=== PATIENT | female | born 2005 | race Caucasian/White ===

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

== ENCOUNTER 2024-05-09 09:09 | Emergency (ER) | payer OTHER, SELFPAY ==
[2024-05-09 09:11] VITALS: BP 128/78; PULSE 114; RESP 15; TEMP 36.8; O2SAT 98; BMI 17.5
--- NOTE | 2024-05-09 09:23 | PC.NURSE ---
dr turner at bedside
--- NOTE | 2024-05-09 09:25 | CT_ITS ---
FINAL REPORT CLINICAL HISTORY: RLQ abdominal pain COMPARISON: 05/11/2021 FINDINGS: CT OF THE ABDOMEN AND PELVIS WITH CONTRAST Axial CT images of the abdomen and pelvis were obtained after the administration of oral and iv contrast. Coronal and sagittal reformatted images were also obtained and reviewed.This study was performed with techniques to keep radiation doses as low as reasonably achievable (ALARA). Individualized dose reduction techniques using automated exposure control or adjustment of mA and/or kV according to the patient's size were employed. Abdomen: The lung bases are clear. The heart is normal in size. The liver has an unremarkable appearance, without evidence of mass or biliary ductal dilatation. The spleen is unremarkable. No adrenal mass is present. The pancreas has an unremarkable appearance. There are multiple bilateral nonobstructing renal stones present, measuring up to 3 mm in size. The number of renal stones has increased since the prior CT of 2020. The aorta is normal in caliber. There is no free fluid or adenopathy. No mass or abnormal fluid collection is seen. Pelvis: The appendix is not well-visualized, however no periappendiceal inflammatory change is present. The urinary bladder is unremarkable. No inflammatory process is seen. There are multiple right lower quadrant mesenteric nodes identified, nonspecific but likely reactive versus mesenteric adenitis. There are prominent dilated periuterine veins, more prominent on the left than on the right, worrisome for pelvic congestion syndrome. These are new since the prior CT of 2020. There is no evidence of bowel obstruction. IMPRESSION: Prominent dilated periuterine veins, more prominent on the left than on the right, worrisome for pelvic congestion syndrome. Multiple right lower quadrant mesenteric nodes, reactive versus mesenteric adenitis. Appendix is not well-seen, however there is no periappendiceal inflammatory change. Multiple bilateral nonobstructing renal stones, more numerous than seen on the prior CT. These measure up to 3 mm in size. No evidence of hydronephrosis is seen. Reviewed, Interpreted and Dictated by Júnior Diop III, MD Transcribed by Josi Rose Authenticated and [facility]
--- NOTE | 2024-05-09 09:29 | HMH.EDGENADL ---
Discharge Plan Disposition Patient Disposition: Home, Self-Care Condition: Good Prescriptions Prescriptions: New ondansetron 4 mg tablet,disintegrating 4 mg PO Q6H PRN (Reason: nausea and vomiting) 5 Days Qty: 30 0RF No Action omeprazole 20 mg capsule,delayed release(DR/EC) 20 mg PO BID Qty: 60 2RF hydroxyzine HCl 25 mg tablet 25 mg PO Q6H PRN (Reason: nausea and vomiting) Qty: 20 0RF medroxyprogesterone [Depo-Provera] 150 mg/mL syringe 150 mg IM [id number] Qty: 1 3RF Referrals Follow up/Referrals: Elliott Davenport MD [Primary Care Provider] - 3 days Activity Restrictions/Add. Instructions Additional Instructions/Restrictions: You can take the Zofran every 6 hours as needed for nausea/vomiting. You will need to increase the fluids that you drink while you are having diarrhea. This can be water or drinks such as Gatorade zero, Powerade zero, Pedialyte. Do not take medications to slow or stop the diarrhea such as Imodium. At this time, your labs and CT scan do not support appendicitis. Continue symptomatic management at home by taking Tylenol and ibuprofen (alternate every 3 hours), applying heat packs to the lower abdomen, taking the antiemetics such as Zofran. Please follow up with your primary care provider in 2-3 days. Please return to ED if your symptoms worsen, change in location, change in severity, new symptoms develop or if you become concerned for your health. Clinical Impressions Clinical Impression: Gastroenteritis, Female pelvic congestion syndrome Instructions Patient Instructions: DI for Acute Abdominal Pain, Gastroenteritis Diet Print Language Print Language: Greenlandic Discharge ED Provider: Renae Cason General Adult HPI General Chief complaint: Abdominal Pain Stated complaint: Severe abdominal pain, V/D Time Seen by Provider: 05/09/24 09:13 Mode of Arrival: Ambulatory Source of Information: Patient Limitations: No Limitations Description of Symptoms (Recalled from ER Triage Doc. by RN): PT REPORTS RIGHT SIDED ABDOMINAL PAIN THAT STARTED ON SUNDAY, PT'S DAUGHTER HAS HAD STOMACH BUG PT REPORTS DIARRHEA AND EMESIS WELL. DENIES FEVER History of Present Illness HPI narrative: Estrella Dutton is a 18 y/o female presenting with abdominal pain. Patient states her abdominal pain started on Sunday night and was associated with frequent diarrhea, nausea, vomiting. Patient's daughter was diagnosed with a stomach bug and she was initially concerned that that is what she had. Patient has not taken [id number] medications at home. She states that she had taken Tylenol one time but it was medication. Patient was seen by her primary care provider yesterday and discharged with supportive care medications. Patient was also given return precautions that if her abdominal pain continued and/or got worse, she should come to the ER for evaluation. Patient is a and has had no prior abdominal surgeries. Patient states she has a history of ovarian cyst rupture and is currently on the Depo-Provera for control. Patient denies fevers, chills, chest pain, shortness of breath. Patient uses a vape, but denies heavy alcohol use or alternative drug use. Related Data Previous Rx's ?Medication ?Instructions ?Recorded medroxyprogesterone 150 mg/mL 150 mg IM [id number] #1 mL 03/07/24 intramuscular syringe (Depo-Provera) hydroxyzine HCl 25 mg tablet 25 mg PO Q6H PRN nausea and 05/08/24 vomiting #20 tabs omeprazole 20 mg capsule,delayed 20 mg PO BID #60 caps 05/08/24 release ondansetron 4 mg disintegrating 4 mg PO Q6H PRN nausea and 05/09/24 tablet vomiting 5 days #30 tabs Allergies Allergy/AdvReac Type Severity Reaction Status Date / Time No Known Allergies Allergy Verified 05/08/24 13:18 [facility] Disclaimer: The information contained in this section may have been updated after the patient was seen, as this information can be updated by other users. Medical History No significant past medical history Surgical History Hx of tonsillectomy Social History Smoking Status: Current every day smoker tobacco type: e-cigarettes alcohol intake: never substance use type: denies use current occupational status: employed Travel in the last 8 weeks: None household members: significant other and children housing: house number of children: 0 do you feel safe at home: Yes victim of physical abuse: No victim of emotional abuse: No victim of sexual abuse: No would you like helpful sources: No Other Medical History Have you received the Flu Vaccine for this season: No Have you received the Pneumonia Vaccine: No ROS Obtained: Yes All systems reviewed & no additional complaints except as documented Physical Exam General General appearance: alert and in no apparent distress Respiratory Respiratory exam: Present normal lung sounds bilaterally; Absent respiratory distress Cardiovascular Cardiovascular exam: Present normal rhythm and tachycardia; Absent JVD Abdominal Exam Abdominal exam: Present soft, tenderness and normal bowel sounds; Absent distention, guarding or rebound Abdominal tenderness: Present RLQ (most prominent in RLQ) and diffuse Extremities Exam Extremities exam: Present normal inspection and full ROM Neurological Exam Neurological exam: Present alert and oriented X3 Skin Skin exam: Present warm, dry, intact and normal color Medical Decision Making Medical Records Screening: Per USPSTF and CDC recommendations, given the prevalence of disease in our region, it is our hospital?s policy to screen for HIV and viral Hepatitis for all patients aged 18 and over and those with ongoing risk factors. Justyn Inquiry Pt receiving controlled substance: No Vital Signs: 05/09/24 09:11 05/09/24 09:46 05/09/24 10:00 Temperature 98.3 F Temperature Source Oral Pulse Rate 97 H 99 H Pulse Rate [Radial] 114 H Respiratory Rate 15 Blood Pressure 110/63 116/66 Blood Pressure [Right Arm] 128/78 Blood Pressure Mean 79 73 Blood Pressure Mean [Right Arm] 94 Blood Pressure Source [Right Arm] Automatic Cuff Blood Pressure Position [Right Arm] Sitting 02 Sat by Pulse Oximetry 98 100 100 Oxygen Delivery Method Room Air 05/09/24 10:30 05/09/24 11:00 Temperature Temperature Source Pulse Rate 93 H 86 Pulse Rate [Radial] Respiratory Rate Blood Pressure 99/61 L 106/67 L Blood Pressure [Right Arm] Blood Pressure Mean 80 Blood Pressure Mean [Right Arm] Blood Pressure Source [Right Arm] Blood Pressure Position [Right Arm] 02 Sat by Pulse Oximetry 100 99 Oxygen Delivery Method Room Air Room Air Lab Data Lab Results 05/09/24 09:19: Urine Color Yellow, Urine Appearance Clear, Urine pH 6.5, Ur Specific [place] 1.025, Urine Protein Negative, Urine Glucose (UA) Negative, Urine Ketones Trace, Urine Blood Trace-i, Urine Nitrate Negative, Urine Bilirubin 1+ A, Urine Urobilinogen 0.2, Ur Leukocyte Esterase Negative, Urine RBC Occasional, Urine WBC Occasional, Ur Squamous Epith Cells 3-5, Urine Bacteria Trace 05/09/24 09:20: WBC 11.7, RBC 5.08, Hgb 15.9, Hct 45.0, MCV 88.4, MCH 31.2, MCHC 35.3, RDW 12.8, Plt Count 188, MPV 8.9, Neut % (Auto) 80.5 H, Lymph % (Auto) 9.4 L, [place] % (Auto) 7.2, Eos % (Auto) 2.2, Baso % (Auto) 0.7, Neut # (Auto) 9.4 H, Lymph # (Auto) 1.1, [place] # (Auto) 0.8, Eos # (Auto) 0.3, Baso # (Auto) 0.1, Sodium 140, Potassium 3.8, Chloride 107, Carbon Dioxide 22, Anion Gap 14.8, BUN 8, Creatinine 0.70, Estimated Creat Clear 80, Estimated GFR 107, Est GFR ( Amer) 129, Glucose 100, Calcium 9.8, Total Bilirubin 0.6, AST 24, ALT 22, Alkaline Phosphatase 67, Total Protein 7.9, Albumin 4.8, Globulin 3.1, Albumin/Globulin Ratio 1.5, Serum HCG, Qual Negative 05/09/24 09:20 05/09/24 09:20 Orders (Tests/Meds): ED MEDICATIONS Generic Name Dose Route Start Last Admin Trade Name Isrrael PRN Reason Stop Dose Admin Sodium Chloride 10 ml 05/09/24 09:52 05/09/24 09:53 Sodium Chloride 0.9% 10ml Syr (Rad Only) IV 06/08/24 09:51 10 ml NEEDED PRN Administration Maintain IV Site Discontinued Medications Generic Name Dose Route Start Last Admin Trade Name Frevishnu PRN Reason Stop Dose Admin Iopamidol 75 ml 05/09/24 09:52 05/09/24 09:53 Iopamidol-370 (76%);100ml Bottle IV 05/09/24 09:53 75 ml ONCE ONE Administration Morphine Sulfate 2 mg 05/09/24 09:25 05/09/24 09:41 Morphine 2mg/Ml Syringe IV 05/09/24 09:26 2 mg ONCE ONE Administration Ondansetron HCl 4 mg 05/09/24 09:25 05/09/24 09:40 Ondansetron 4mg/2ml Vial IV 05/09/24 09:26 4 mg ONCE ONE Administration ORDERS Category Date Time Status CT abdomen pelvis w con Stat Cat Scan 05/09/24 09:25 Completed Complete Blood Count Auto Diff Stat Lab 05/09/24 09:20 Completed Comprehensive Metabolic Panel Stat Lab 05/09/24 09:20 Completed HCG Qualitative, Serum Stat Lab 05/09/24 09:20 Completed HIV (1&2) Antibody Rapid Stat Lab 05/09/24 09:20 Received Hep C Ab with Reflex to RNA Stat Lab 05/09/24 09:20 Received Urinalysis and Microscopic Stat Lab 05/09/24 09:19 Completed Medical Decision Narrative: In summary, Estrella Dutton is a 18 y/o female presenting with abdominal pain. Differential diagnosis includes but is not limited to, viral gastroenteritis, appendicitis, ovarian torsion, constipation, IBS, IBD, acute cystitis, among others. On initial evaluation, patient is tachycardic but in no acute distress. Patient able to ambulate without significant tenderness. Exam notable for diffuse abdominal tenderness without rebound or guarding which was most significant in the patient's right lower quadrant. Patient has had her symptoms for the past 3 days and her pain has continued to worsen. To this point, patient has not had any labs or imaging performed. Based on the history provided by the patient, her most likely diagnosis continues to be a gastroenteritis given the exposure at home as well as vomiting and diarrhea associated with the abdominal pain that she describes as cramping. Will perform abdominal laboratory evaluation (CBC w/, CMP, lipase, hCG, UA) as well as imaging to rule out more significant diagnoses such as appendicitis and ovarian torsion by evaluating the size of the ovaries on the CT scan initially. Laboratory evaluation without leukocytosis, anemia, thrombocytopenia. Beta-hCG negative. Urinalysis without evidence of acute cystitis. CT abdomen/pelvis with IV contrast personally reviewed by me and the appendix was not well-visualized. No evidence of bowel obstruction, bladder wall thickening, enlarged ovaries. Final radiologic report reads no inflammatory process in the likely region of the appendix, right lower quadrant mesenteric nodes are identified and possibly reactive. Patient also has prominent periuterine vasculature suggesting pelvic congestion syndrome. Upon reevaluation, patient's findings were discussed with her. At this time, although the appendix was not visualized, patient's laboratory evaluation and surrounding features on her CT scan do not support the diagnosis of appendicitis at this time. Given patient's primary contact with her child at home having a gastroenteritis infection, patient most likely suffering from something similar. Patient tolerated a p.o. challenge without difficulty. Patient given a prescription for Zofran in addition to the medications provided by her primary care provider. Patient also given guidance with regards to at home pain and symptomatic control. Patient advised to follow-up with her [facility] [employer] [employer], on a nonemergent basis, for the pelvic congestion syndrome. Renae Cason MD PGY-3, Emergency Medicine Critical Care Critical Care Time Critical Care Time: No
[2024-05-09 09:35] LABS: Albumin Level 4.8 g/dl (3.5-5.0); Basophils # 0.1 K/mm3 (0-0.2); Basophils % 0.7 % (0.1-2.0); Chloride 107 mmol/L (98-107); Eosinophils # 0.3 K/mm3 (0.0-0.4); Eosinophils % 2.2 % (0.1-12.0); Hemoglobin 15.9 g/dL (12.2-16.2); Lymphocytes # 1.1 K/mm3 (0.7-4.5); Lymphocytes % 9.4 % (10-50); Mean Corpuscular HGB Conc 35.3 g/dL (31.8-35.4); Mean Corpuscular Hemoglobin 31.2 pg (27.0-31.2); Mean Corpuscular Volume 88.4 fl (81-99); Mean Platelet Volume 8.9 fl (7.4-10.4); Monocytes # 0.8 K/mm3 (0.1-1.0); Monocytes % 7.2 % (1.7-9.3); Neutrophils # 9.4 K/mm3 (1.8-7.8); Neutrophils % 80.5 % (37.0-80.0); Platelet Count 188 K/mm3 (142-424); Red Blood Count 5.08 M/mm3 (4.20-5.40); Red Cell Distribution Width 12.8 % (11.5-17.5); Sodium 140 mmol/L (136-145); White Blood Count 11.7 K/mm3 (4.5-13.0)
[2024-05-09 09:36] LABS: Potassium 3.8 mmoL/L (3.5-5.1)
[2024-05-09 09:38] LABS: Alanine Aminotransferase 22 U/L (12-78); Albumin/Globulin Ratio 1.5 (1.1-1.8); Alkaline Phosphatase 67 U/L (38-126); Anion Gap 14.8 mEq/L (5-15); Aspartate Amino Transferase 24 U/L (14-36); Bilirubin,Total 0.6 mg/dl (0.2-1.3); Blood Urea Nitrogen 8 mg/dl (7-17); Carbon Dioxide 22 mmol/L (22.0-30.0); Creatinine Clearance Estimated 80 mL/min (50-200); Estimated Glomerular Filt Rate 107 ml/min (>60); GFR (African American) 129 ML/MIN (>60); Globulin 3.1 g/dL (1.3-3.2); Total Protein,Serum 7.9 g/dl (6.3-8.2)
[2024-05-09 09:39] LABS: Calcium 9.8 mg/dl (8.4-10.2); Glucose 100 mg/dl (74-100)
[2024-05-09] MEDS: ONDANSETRON 4MG/2ML VIAL 4 MG IV (09:40)
[2024-05-09 09:41] LABS: HCG Qualitative, Serum Negative (Negative)
[2024-05-09] MEDS: MORPHINE 2MG/ML SYRINGE 2 MG IV (09:41)
[2024-05-09 09:43] LABS: Microscopic, Urine URINE MICROSCOPIC (MICROSCOPIC)
[2024-05-09 09:46] VITALS: BP 110/63; PULSE 97; O2SAT 100
--- NOTE | 2024-05-09 09:49 | PC.NURSE ---
pt ambulatory to RAD
--- NOTE | 2024-05-09 09:52 | PC.NURSE ---
PT TO CT
[2024-05-09] MEDS: IOPAMIDOL-370 (76%);100ML BOTTLE 75 ML IV (09:53)
[2024-05-09] MEDS: SODIUM CHLORIDE 0.9% 10ML SYR (RAD ONLY) 10 ML IV (09:53)
--- NOTE | 2024-05-09 09:59 | PC.NURSE ---
PT RETURNED FROM CT
[2024-05-09 10:00] VITALS: BP 116/66; PULSE 99; O2SAT 100
[2024-05-09 10:18] LABS: Appearance,Urine CLEAR (Clear); Blood, Urine TRACE-I (Negative); Color,Urine YELLOW (Yellow); Glucose,Urine (UA) Negative (Negative); Ketones,Urine TRACE (Negative); Leukocyte Esterase,Urine Negative (Negative); Nitrate,Urine Negative (Negative); PH,Urine 6.5 (5.0-8.5); Protein,Urine Negative (Negative); Specific Gravity, Urine 1.025 (1.005-1.030); Urobilinogen,Urine 0.2 EU/dl (0.2)
[2024-05-09 10:27] LABS: Bilirubin,Urine 1+ (Negative)
[2024-05-09 10:30] VITALS: BP 99/61; PULSE 93; O2SAT 100
[2024-05-09 10:30] LABS: Bacteria,Urine Trace /lpf; RBC,Urine Occasional #/hpf (0-3); WBC,Urine Occasional #/hpf (0-3)
--- NOTE | 2024-05-09 10:37 | PC.NURSE ---
ROUNDED ON PT, NO NEEDS AT THIS TIME. CALL LIGHT WITHIN REACH
[2024-05-09 11:00] VITALS: BP 106/67; PULSE 86; O2SAT 99
--- NOTE | 2024-05-09 11:32 | PC.NURSE ---
DR CROUCH AT BEDSIDE TO UPDATE PT
[2024-05-09 11:42] VITALS: BP 108/60; PULSE 88; RESP 16; TEMP 36.7; O2SAT 99
[2024-05-09 15:30] LABS: HIV (1&2) Antibody Rapid NONREACTIVE (NONREACTIVE)
[2024-05-10 08:51] LABS: HCV Ab Non Reactive (Non Reactive)
== END 2024-05-09 11:45 | disposition home or self-care (01) ==
PROVIDERS: Emergency Provider Student in an Organized Health Care Education/Training Program; PCP Family Medicine
DX: N94.89 Other specified conditions associated with female genital organs and menstrual cycle (principal); K52.9 Noninfective gastroenteritis and colitis, unspecified; R10.9 Unspecified abdominal pain; R11.2 Nausea with vomiting, unspecified
CPT/HCPCS: 74177; 80053; 81001; 84703; 85025; 86803; 87389; 96374; 96375; 99285; J2270; J2405; Q9967

== ENCOUNTER 2025-03-20 17:20 | Emergency (ER) | payer OTHER, SELFPAY ==
[2025-03-20 17:29] VITALS: BP 115/79; PULSE 129; RESP 20; TEMP 37.2; O2SAT 97; BMI 19.0
--- NOTE | 2025-03-20 17:43 | ED_ITS ---
<Statement entered by Emile Wilcox DO - 03/21/25 01:47> I was consulted by the BHAVIK, and we discussed the complexity of problems being addressed. I approved the treatment and management plan for this patient's care in the emergency department, thus performing a substantive portion of the medical decision making. I did personally evaluate the self. She had a gate slamming to her left elbow. She has a minor contusion over the proximal left forearm along the dorsal aspect. I have a very low suspicion that there is an underlying fracture. She has full flexion extension. She is motor and sensory intact. We proceeded with an x-ray out of comfort for the patient. There was no fracture. The patient was discharged stable Emile Wilcox DO Discharge Plan Disposition Patient Disposition: Home, Self-Care Condition: Good Prescriptions Prescriptions: No Action medroxyprogesterone 150 mg/mL syringe 150 mg IM [id number] hydroxyzine HCl 10 mg tablet 10 mg PO QID PRN (Reason: anxiety) Qty: 40 1RF escitalopram oxalate [Lexapro] 10 mg tablet 10 mg PO DAILY Qty: 30 2RF Referrals Follow up/Referrals: Vero Albrecht APRN [Primary Care Provider, Family Practice] - See instructions Activity Restrictions/Add. Instructions Additional Instructions/Restrictions: Please return to the emergency department with any worsening signs or symptoms, please follow-up with your family doctor in the upcoming days/weeks, I recommend ibuprofen and Tylenol as needed for symptomatic relief as well as ice and rest. Clinical Impressions Clinical Impression: Injury of elbow, left Print Language Print Language: Ukrainian Discharge ED Provider: Emile Wilcox General Adult HPI General Chief complaint: Extremity Injury, Upper Stated complaint: AO 03/19/25 1600 Injury left arm Time Seen by Provider: 03/20/25 17:35 Mode of Arrival: Ambulatory Source of Information: Patient Description of Symptoms (Recalled from ER Triage Doc. by RN): patient presents to the ED after being hit by a gate on her property yesterday evening while tending to her animals. patient stated the gate hit her left upper extremity close to the elbow. patient has a raiased area on imapaction site. it is tender to the touch. patient can wiggle fingers, move arm freely. History of Present Illness HPI narrative: 19-year-old female presents the emergency department with a left elbow injury that occurred last night, when she had a gate hit her in the elbow, patient is been utilizing the elbow, has no pain limited range of motion, does have some elbow soreness/forearm tenderness, no fever no chills no chest pain no shortness of breath, no abdominal pain no nausea no vomiting no diarrhea no urinary type symptomatology no numbness tingling no upper or lower extremity weakness, patient is a current everyday smoker (vapes), denies any alcohol or drug use, has no other relevant past medical history takes no other medications at home. Initial triage vitals unremarkable. Please note that above description of symptoms, in this electronic medical record under categorization of recalled from ER triage doctor by RN are reflective of an initial nursing assessment, however, is not reflective of my full history and physical exam that was personally taken and clarified. Consequentially, this preceding description of symptoms, which may include the patient's categorized chief complaint in the EMR, do not reflect my personal clinical impression, and the ultimate description of history of present illness and patient stated complaints should be deferred to this section of the note. Unless stated otherwise or congruent with this section of the note, additional signs, symptoms, or incongruence should be interpreted as inaccurate with my clinical impression. Onset (ago): day(s) Related Data Home Medications ?Medication ?Instructions ?Recorded ?Confirmed medroxyprogesterone 150 mg/mL 150 mg IM [id number] 01/0702/05/25 intramuscular syringe Previous Rx's ?Medication ?Instructions ?Recorded hydroxyzine HCl 10 mg tablet 10 mg PO QID PRN anxiety #40 tabs 02/05/25 escitalopram oxalate 10 mg tablet 10 mg PO DAILY #30 t abs 02/19/25 (Lexapro) Allergies Allergy/AdvReac Type Severity Reaction Status Date / Time No Known Allergies Allergy Verified 02/05/25 10:09 [facility] Disclaimer: The information contained in this section may have been updated after the patient was seen, as this information can be updated by other users. Medical History (Updated 03/20/25 @ 18:28 by OSWALDO Carranza) Contraceptive management No significant past medical history Surgical History Hx of tonsillectomy Social History Smoking Status: Never smoker alcohol intake: never substance use type: denies use current occupational status: employed Travel in the last 8 weeks?: None household members: significant other and children housing: house number of children: 0 do you feel safe at home: Yes victim of physical abuse: No victim of emotional abuse: No victim of sexual abuse: No would you like helpful sources: No Have you lived/traveled outside [place] in past 30 days?: No Contact w/someone who lives/traveled outside US past 30 days?: No Exposure to someone with infectious disease in past 14 days?: No Do you have a fever (greater than 100.4 F or 38 C)?: No Have you tested positive for COVID-19?: No Exposed to someone with COVID-19 in past 14 days?: No Do you have a sore throat?: No Do you have a cough?: No Do you have any weakness?: No Do you have any diarrhea?: No Are you experiencing any unusual bleeding?: No Do you have any muscle aches/pain?: No Do you have any abdominal pain?: No Are you experiencing loss of taste or smell?: No Other Medical History Have you received the Flu Vaccine for this season: No Have you received the Pneumonia Vaccine: No ROS Obtained: Yes All systems reviewed & no additional complaints except as documented Physical Exam General General appearance: alert and in no apparent distress Head Head exam: atraumatic and normocephalic Eye Eye exam: Present PERRL and EOMI ENT ENT exam: Present mucous membranes moist Neck Neck exam: Present normal inspection Chest Chest inspection: Present normal inspection and symmetric chest wall rise Respiratory Respiratory exam: Present normal lung sounds bilaterally; Absent respiratory distress Cardiovascular Cardiovascular exam: Present regular rate and normal rhythm Abdominal Exam Abdominal exam: Present soft; Absent tenderness Extremities Exam Extremities exam: Present normal inspection, tenderness and other (There is mild pain to palpation to the olecranon region laterally, as well as left forearm region, otherwise neurovascular intact, finger opposition good, no other acute symptomatology, no acute fracture or deformity noted) Neurological Exam Neurological exam: Present alert and oriented X3 Psychiatric Psychiatric exam: Present normal affect Skin Skin exam: Present warm and dry Medical Decision Making Medical Records Medical records reviewed: Yes I reviewed the patient's medical records. Screening: Per USPSTF and CDC recommendations, given the prevalence of disease in our region, it is our hospital?s policy to screen for HIV and viral Hepatitis for all patients aged 18 and over and those with ongoing risk factors. Justyn Inquiry Pt receiving controlled substance: No Justyn was queried for this patient: No Vital Signs: 03/20/25 17:29 03/20/25 18:00 Temperature 98.9 F Temperature Source Temporal Artery Scan Pulse Rate 91 H Pulse Rate [Right Radial] 129 H Respiratory Rate 20 15 Blood Pressure 126/65 Blood Pressure [Right Arm] 115/79 Blood Pressure Mean [Right Arm] 91 Blood Pressure Source [Right Arm] Automatic Cuff Blood Pressure Position [Right Arm] Sitting 02 Sat by Pulse Oximetry 97 99 Oxygen Delivery Method Room Air Orders (Tests/Meds): ORDERS Category Date Time Status XR elbow LT min 3V Stat Exams 03/20/25 17:54 Taken XR forearm LT 2V Stat Exams 03/20/25 18:09 Taken Medical Decision Narrative: 19-year-old female presents the emergency department with left elbow pain after injury, differential diagnose include but not limited to, elbow hematoma, olecranon fracture, elbow sprain/strain, forearm sprain/strain acute soft tissue injury among others. I discussed this patient's case with the attending physician Dr. Wilcox he saw and examined the patient as well. Obtain x-ray of the left elbow and left forearm for further evalu ation/characterization. I independently interpreted and viewed the patient's plain film x-ray of the forearm and the elbow, there is no obvious acute traumatic injury, no bony abnormality, no traumatic malalignment, patient would like to be discharged home to self-care, think this is appropriate decision-making was utilized, will call patient with formal radiology report, recommend ibuprofen Tylenol as needed for symptomatic relief, patient voiced understanding and agreed with the current treatment plan/discharge plan. Patient is otherwise neurovascular intact. No other acute symptomatology. Patient follow-up PCP in the upcoming days. Patient and family voiced understanding. Critical Care Critical Care Time Critical Care Time: No
--- NOTE | 2025-03-20 17:54 | XR_ITS ---
PROCEDURE INFORMATION: Exam: XR Left Elbow Exam date and time: 03/20/2025 6:06 PM Age: 19 years old Clinical indication: Injury or trauma; Other: Hit with gate; Blunt trauma (contusions or hematomas); Elbow; Left; Additional info: Left elbow injury yesterday, pain TECHNIQUE: Imaging protocol: Radiologic exam of the left elbow. Views: 3 or more views. COMPARISON: No relevant prior studies available. FINDINGS: Bones/joints: No acute fracture or dislocation. Soft tissues: Normal. IMPRESSION: No acute fracture or dislocation.
[2025-03-20 18:00] VITALS: BP 126/65; PULSE 91; RESP 15; O2SAT 99
--- NOTE | 2025-03-20 18:09 | XR_ITS ---
PROCEDURE INFORMATION: Exam: XR Left Forearm Exam date and time: 03/20/2025 6:23 PM Age: 19 years old Clinical indication: Injury or trauma; Other: Left forearm injury TECHNIQUE: Imaging protocol: Radiologic exam of the left forearm. Views: 2 views. COMPARISON: CR XR ELBOW LT MIN 3V 03/20/2025 6:06 PM FINDINGS: Bones/joints: No acute fracture or dislocation. Soft tissues: Normal. IMPRESSION: No acute fracture or dislocation.
[2025-03-20 18:37] VITALS: BP 104/64; PULSE 82; RESP 17; TEMP 37.1; O2SAT 99
--- NOTE | 2025-03-23 09:32 | PC.NURSE ---
pt called about her XR results, I conveyed them to her.
== END 2025-03-20 18:39 | disposition home or self-care (01) ==
PROVIDERS: Emergency Provider Student in an Organized Health Care Education/Training Program; PCP Nurse Practitioner Family
DX: S59.902A Unspecified injury of left elbow, initial encounter (principal); W22.8XXA Striking against or struck by other objects, initial encounter
CPT/HCPCS: 73080; 73090; 99282; 99283

== ENCOUNTER 2025-05-05 16:48 | Emergency (ER) | payer OTHER, SELFPAY ==
[2025-05-05 16:49] VITALS: BP 138/77; PULSE 134; RESP 18; TEMP 37; O2SAT 99; BMI 19.0
--- NOTE | 2025-05-05 17:03 | CT_ITS ---
PROCEDURE INFORMATION: Exam: CT Abdomen And Pelvis Without Contrast Exam date and time: 05/05/2025 5:21 PM Age: 19 years old Clinical indication: Other: Possible kidney stone TECHNIQUE: Imaging protocol: Computed tomography of the abdomen and pelvis without contrast. Radiation optimization: All CT scans at this facility use at least one of these dose optimization techniques: automated exposure control; mA and/or kV adjustment per patient size (includes targeted exams where dose is matched to clinical indication); or iterative reconstruction. COMPARISON: CT ABDOMEN PELVIS W CON 05/09/2024 9:54 AM FINDINGS: Lungs: Lung bases are clear. Liver: Normal. No mass. Gallbladder and biliary ducts: Normal. No calcified stones. No ductal dilation. Pancreas: Normal. No ductal dilation. Spleen: Normal. No splenomegaly. Adrenal glands: Normal. No mass. Kidneys and ureters: Bilateral nonobstructing renal stones measuring up to 5 mm. Interval development of a 4 mm stone in the region of the proximal left ureter just beyond the ureteropelvic junction on axial image 45 and coronal image 25 with minimal hydro nephrosis. No other obstructing stones or uropathy. Stomach and bowel: Unremarkable. No obstruction. No mucosal thickening. Appendix: No evidence of appendicitis. Intraperitoneal space: Unremarkable. No free air. No significant fluid collection. Vasculature: Unremarkable. No abdominal aortic aneurysm. Lymph nodes: Unremarkable. No enlarged lymph nodes. Urinary bladder: Unremarkable as visualized. Reproductive: Unremarkable as visualized. Bones/joints: Unremarkable. No acute fracture. Soft tissues: Unremarkable. IMPRESSION: 1. Interval development of a 4 mm stone in the region of the proximal left ureter just beyond the ureteropelvic junction with minimal hydro nephrosis. 2. Bilateral nonobstructing kidney stones.
--- NOTE | 2025-05-05 17:04 | ED_ITS ---
Discharge Plan Disposition Patient Disposition: Home, Self-Care Prescriptions Prescriptions: New oxycodone 5 mg tablet 5 mg PO Q6H PRN (Reason: pain) Qty: 12 0RF tamsulosin [Flomax] 0.4 mg capsule 0.4 mg PO DAILY Qty: 7 0RF No Action medroxyprogesterone 150 mg/mL syringe 150 mg IM [id number] escitalopram oxalate [Lexapro] 10 mg tablet 10 mg PO DAILY Qty: 30 2RF Referrals Follow up/Referrals: Clive Romero MD [Staff Physician, Urology] - See instructions Elliott Davenport MD [Primary Care Provider, Internal Medicine] - See instructions Activity Restrictions/Add. Instructions Additional Instructions/Restrictions: You have a 4 mm kidney stone on the left side. This will likely pass on its own but may be painful until it does. You can take the pain medicine prescribed to you to help with pain. You can also take Tylenol and ibuprofen every 6 hours as needed to help with pain. Take the Flomax as prescribed to help pass the kidney stone. Every time that you urinate, pee into the strainer to collect the kidney stone. When you have your appointment with Dr. Romero with the urology team, take the stone with you as they can likely tested to see what type of kidney stone it is and make recommendations based on that. If you develop any new or worsening symptoms, such as fever, worsening pain, or if you become concerned for your help for any reason, return to the emergency department for evaluation. Clinical Impressions Clinical Impression: Ureterolithiasis Instructions Patient Instructions: DI for Low Back Pain Print Language Print Language: Maltese Discharge ED Provider: Darion Barrios General Adult HPI General Chief complaint: Back Pain/Injury Stated complaint: vomiting,back pain,kidney pain Time Seen by Provider: 05/05/25 16:58 Mode of Arrival: Ambulatory Source of Information: Patient Description of Symptoms (Recalled from ER Triage Doc. by RN): patient presents to the ED wiht bilateral flank pain that has been intermittent over the last 2 weeks. today, the pain is making her experience nausea and vomiting. patient endorses urinary urgency and frequency. patient denies burning when she pees or blood in urine. has a history of kidney stones. History of Present Illness HPI narrative: Estrella Dutton is a 19y female with a history of kidney stones, possible POTS, tachycardia who presents to the emergency department for complaints of possible kidney stone. Patient states that started yesterday, she had bilateral back/flank pain and lower abdominal pain. Today she noted that her urine was tea colored . She denies any dysuria. She reports that she has had kidney stones in the past and states that this feels identical to when she had kidney stones in the past. She has not been seen by urologist. She states that she has been taking Tylenol without significant relief. She states that she has not had a fever. She does report vomiting due to pain. Related Data Home Medications ?Medication ?Instructions ?Recorded ?Confirmed medroxyprogesterone 150 mg/mL 150 mg IM [id number] 01/0704/13/25 intramuscular syringe Previous Rx's ?Medication ?Instructions ?Recorded escitalopram oxalate 10 mg tablet 10 mg PO DAILY #30 t abs 04/13/25 (Lexapro) oxycodone 5 mg tablet 5 mg PO Q6H PRN pain #12 tab s 05/05/25 tamsulosin 0.4 mg capsule (Flomax) 0.4 mg PO DAILY #7 caps 05/05/25 Allergies Allergy/AdvReac Type Severity Reaction Status Date / Time No Known Allergies Allergy Verified 04/13/25 15:11 [facility] Disclaimer: The information contained in this section may have been updated after the patient was seen, as this information can be updated by other users. Medical History Contraceptive management No significant past medical history Surgical History Hx of tonsillectomy Social History Smoking Status: Never smoker alcohol intake: never substance use type: denies use current occupational status: employed Travel in the last 8 weeks?: None household members: significant other and children housing: house number of children: 0 do you feel safe at home: Yes victim of physical abuse: No victim of emotional abuse: No victim of sexual abuse: No would you like helpful sources: No Have you lived/traveled outside [place] in past 30 days?: No Contact w/someone who lives/traveled outside [place] past 30 days?: No Exposure to someone with infectious disease in past 14 days?: No Do you have a fever (greater than 100.4 F or 38 C)?: No Have you tested positive for COVID-19?: No Exposed to someone with COVID-19 in past 14 days?: No Do you have a sore throat?: No Do you have a cough?: No Do you have any weakness?: No Do you have any diarrhea?: No Are you experiencing any unusual bleeding?: No Do you have any muscle aches/pain?: No Do you have any abdominal pain?: No Are you experiencing loss of taste or smell?: No Other Medical History Have you received the Flu Vaccine for this season: No Have you received the Pneumonia Vaccine: No ROS Obtained: Yes Systems reviewed as appropriate & no additional complaints except as documented Physical Exam General General appearance: alert and in no apparent distress Head Head exam: atraumatic Eye Eye exam: Present normal appearance ENT ENT exam: Present normal external ear exam Neck Neck exam: Present full ROM Chest Chest inspection: Present symmetric chest wall rise Respiratory Respiratory exam: Present normal lung sounds bilaterally; Absent respiratory distress, wheezes or stridor Cardiovascular Cardiovascular exam: Present regular rate and normal rhythm Abdominal Exam Abdominal exam: Present soft; Absent distention, tenderness, guarding or rebound Extremities Exam Extremities exam: Present normal inspection Back Exam Back exam: Present normal inspection and CVA tenderness (L); Absent CVA tenderness (R) Neurological Exam Neurological exam: Present alert and oriented X3 Psychiatric Psychiatric exam: Present normal affect Skin Skin exam: Present warm and dry Medical Decision Making Medical Records Screening: Per USPSTF and CDC recommendations, given the prevalence of disease in our region, it is our hospital?s policy to screen for HIV and viral Hepatitis for all patients aged 18 and over and those with ongoing risk factors. Justyn Inquiry Pt receiving controlled substance: No Vital Signs: 05/05/25 16:49 05/05/25 17:30 05/05/25 17:45 Temperature 98.6 F Temperature Source Oral Pulse Rate 98 H 89 Pulse Rate [Right Radial] 134 H Respiratory Rate 18 Blood Pressure 114/77 106/53 L Blood Pressure [Right Arm] 138/77 Blood Pressure Mean [Right Arm] 97 Blood Pressure Source [Right Arm] Manual Cuff/ Doppler Blood Pressure Position [Right Arm] Sitting 02 Sat by Pulse Oximetry 99 100 100 Oxygen Delivery Method Room Air 05/05/25 18:00 Temperature Temperature Source Pulse Rate 94 H Pulse Rate [Right Radial] Respiratory Rate Blood Pressure 111/70 Blood Pressure [Right Arm] Blood Pressure Mean [Right Arm] Blood Pressure Source [Right Arm] Blood Pressure Position [Right Arm] 02 Sat by Pulse Oximetry 100 Oxygen Delivery Method Lab Data Lab Results 05/05/25 17:02: Urine Color Yellow, Urine Appearance Sl cloudy, Urine pH 6.0, Ur Specific [place] 1.025, Urine Protein 1+ A, Urine Glucose (UA) Negative, Urine Ketones 1+, Urine Blood 3+ A, Urine Nitrate Negative, Urine Bilirubin Negative, Urine Urobilinogen 0.2, Ur Leukocyte Esterase Negative, Urine RBC Tntc, Urine WBC 10-20, Ur Squamous Epith Cells 20-50, Urine Bacteria 3+, Urine HCG, Qual Negative 05/05/25 17:13: WBC 12.9 H, RBC 4.60, Hgb 14.6, Hct 41.4, MCV 90.0, MCH 31.7 H, MCHC 35.3, RDW 12.4, Plt Count 194, MPV 11.2 H, Neut % (Auto) 81.7 H, Lymph % (Auto) 10.1, Esmeralda % (Auto) 7.0, Eos % (Auto) 0.4, Baso % (Auto) 0.4, Neut # (Auto) 10.6 H, Lymph # (Auto) 1.3, Esmeralda # (Auto) 0.9, Eos # (Auto) 0.1, Baso # (Auto) 0.1, Sodium 140, Potassium 3.9, Chloride 104, Carbon Dioxide 23, Anion Gap 16.9 H, BUN 5 L, Creatinine 0.70, Estimated Creat Clear 86, Estimated GFR 106, Est GFR ( Amer) 128, Glucose 59 L, Calcium 9.6, Total Bilirubin 1.3, AST 20, ALT 17, Alkaline Phosphatase 85, Total Protein 7.4, Albumin 4.9, Globulin 2.5, Albumin/Globulin Ratio 2.0 H, Lipase 49 05/05/25 17:13 05/05/25 17:13 Orders (Tests/Meds): ED MEDICATIONS Discontinued Medications Generic Name Dose Route Start Last Admin Trade Name Freq PRN Reason Stop Dose Admin Lactated Ringer's 1,000 mls @ 999 mls/hr 05/05/25 17:04 05/05/25 17:24 Lactated Ringer's 1000 Ml Bag IV 05/05/25 18:04 999 mls/hr .Q1H1M ONE Administration Ketorolac Tromethamine 15 mg 05/05/25 17:03 05/05/25 17:23 Ketorolac 15mg/Ml Vial IV 05/05/25 17:04 15 mg ONCE ONE Administration Ondansetron HCl 4 mg 05/05/25 17:03 05/05/25 17:24 Ondansetron 4mg/2ml Vial IV 05/05/25 17:04 4 mg ONCE ONE Administration ORDERS Category Date Time Status CT abdomen pelvis wo con Stat Cat Scan 05/05/25 17:03 Completed CBC w/Auto Diff [Complete Blood Count Auto Diff] Stat Lab 05/05/25 17:13 Completed CMP [Comprehensive Metabolic Panel] Stat Lab 05/05/25 17:13 Completed Lactic Acid Stat Lab 05/05/25 17:03 Ordered Lipase Stat Lab 05/05/25 17:13 Completed UA [Urinalysis and Microscopic] Stat Lab 05/05/25 17:02 Completed Urine , HCG Qual. Stat Lab 05/05/25 17:02 Completed Urine Culture Stat Micro 05/05/25 17:02 Received EKG Request [ECG Request] Stat Y 05/05/25 17:09 Ordered ECG Data Tracing #1: I reviewed this ECG and interpreted as documented below: Normal sinus rhythm with ventricular rate of [address] elevation or depression. QTc 372 Medical Decision Narrative: Estrella Dutton is a 19y female with a history of kidney stones, possible POTS, tachycardia who presents to the emergency department for complaints of possible kidney stone. Patient states that started yesterday, she had bilateral back/flank pain and lower abdominal pain. Today she noted that her urine was tea colored . She denies any dysuria. She reports that she has had kidney stones in the past and states that this feels identical to when she had kidney stones in the past. She has not been seen by urologist. She states that she has been taking Tylenol without significant relief. She states that she has not had a fever. She does report vomiting due to pain. Patient notes that she has a history of tachycardia and is post to follow-up with cardiology for Holter monitor and believes she may have POTS but has never been formally diagnosed. She denies any chest pain or shortness of breath. On arrival, patient is normotensive with blood pressure 138/77, heart rate 134 bpm. Breathing 18 times a minute. Afebrile. Oxygen 99% on room air. Physical exam, stated above, revealed an overall well-appearing female in no distress. She is alert and oriented. She has a left-sided CVA tenderness. Abdomen is soft, grossly nontender and nondistended. Abdomen is not peritonitic. Cardiopulmonary exam reveals tachycardia but no murmurs, rubs, wheezing, rales or rhonchi. Differential diagnosis includes, but is not limited to: Ureterolithiasis, ectopic , pyelonephritis, acute pancreatitis, peptic ulcer disease, gastritis, among others. The most morbid conditions were considered and workup was based on these. Initial workup in the emergency room included: CT abdomen pelvis without contrast, CBC with differential, CMP, lactic acid, lipase, urinalysis, urine test EKG given patient's tachycardia. Patient was given 1 L LR, 15 mg IV Toradol, 4 mg of IV Zofran. Patient's urine sample appears bright pink, suggesting hematuria. EKG showed improvement patient's tachycardia to 90 bpm. No ischemic changes. See interpretation above Urinalysis demonstrates 1+ protein, 3+ blood but nitrate and leukocyte esterase negative. Negative test. Urine microscopy shows too numerous to count red blood cells but high degree of squamous epithelial cells and only 10- 20 white blood cells. Given it is nitrate and leukocyte esterase negative, I do not feel that this represents an infected kidney stone. Patient has mild leukocytosis of 12.9. CMP unremarkable nonactionable. Liver enzymes within normal limits. Lipase normal. CT imaging was interpreted by me personally. The patient appears to have a 4 mm renal stone in the proximal left ureter with very mild left hydronephrosis but no perinephric fat stranding. Patient does have several nonobstructing kidney stones within the bilateral kidneys. See radiology report for details. On reassessment, patient is resting comfortably. I do feel that given the size of the patient's kidney stone it would likely pass on its own. Will prescribe Flomax as well as oxycodone for pain. Also encouraged Tylenol and ibuprofen to help with symptoms. Will also send her with strainer and referral to urology given she has had multiple kidney stones and there are still several within both kidneys. Strict return precautions were given for any fever or uncontrolled pain. All questions were answered. She demonstrated understanding and was in agreement this plan. She was then discharged from the emergency department in stable condition. Critical Care Critical Care Time Critical Care Time: No
[2025-05-05 17:05] LABS: Microscopic, Urine URINE MICROSCOPIC (MICROSCOPIC)
[2025-05-05 17:09] LABS: Color,Urine YELLOW (Yellow); Glucose,Urine (UA) Negative (Negative); Ketones,Urine 1+ (Negative); Leukocyte Esterase,Urine Negative (Negative); PH,Urine 6.0 (5.0-8.5); Protein,Urine 1+ (Negative); Specific Gravity, Urine 1.025 (1.005-1.030); Urobilinogen,Urine 0.2 EU/dl (0.2)
--- NOTE | 2025-05-05 17:09 | ECG_ITS ---
APPROVED REPORT Exam: Resting ECG HR:90 bpm ECG Measurements Heart Rate 90 AXES WA 133 P 65 QRSd 76 QRS 81 QT 325 T 38 QTc 372 Conclusion SINUS RHYTHM POSSIBLE RIGHT VENTRICULAR CONDUCTION DELAY [RSR (QR) IN V1/V2] BORDERLINE ECG UNCONFIRMED REPORT Electronically signed by : SHAW MIR, 05/05/2025 23:49:30
[2025-05-05 17:11] LABS: Urine Pregnancy, HCG Qual. Negative (Negative)
[2025-05-05 17:15] LABS: Bilirubin,Urine Negative (Negative)
[2025-05-05] MEDS: KETOROLAC 15MG/ML VIAL 15 MG IV (17:23)
[2025-05-05] MEDS: LACTATED RINGERS 1000ML 1,000 ML 999 ML IV (17:24)
[2025-05-05] MEDS: ONDANSETRON 4MG/2ML VIAL 4 MG IV (17:24)
[2025-05-05 17:29] LABS: Hematocrit 41.4 % (37.0-47.0); Hemoglobin 14.6 g/dL (12.2-16.2); Immature Granulocytes % 0.4 %; Mean Corpuscular HGB Conc 35.3 g/dL (31.8-35.4); Mean Corpuscular Hemoglobin 31.7 pg (27.0-31.2); Mean Corpuscular Volume 90.0 fl (81-99); Nucleated Red Blood Cells % 0 %; Platelet Count 194 K/mm3 (142-424); Red Blood Count 4.60 M/mm3 (4.20-5.40); Red Cell Distribution Width-SD 40.8 fL; White Blood Count 12.9 K/mm3 (4.8-10.8)
[2025-05-05 17:30] VITALS: BP 114/77; PULSE 98; O2SAT 100
[2025-05-05 17:38] LABS: Alanine Aminotransferase 17 U/L (12-78); Albumin Level 4.9 g/dl (3.5-5.0); Albumin/Globulin Ratio 2.0 (1.1-1.8); Alkaline Phosphatase 85 U/L (38-126); Anion Gap 16.9 mEq/L (5-15); Aspartate Amino Transferase 20 U/L (14-36); Bilirubin,Total 1.3 mg/dl (0.2-1.3); Blood Urea Nitrogen 5 mg/dl (7-17); Calcium 9.6 mg/dl (8.4-10.2); Carbon Dioxide 23 mmol/L (22.0-30.0); Chloride 104 mmol/L (98-107); Creatinine Clearance Estimated 86 mL/min (50-200); Creatinine,Serum 0.70 mg/dl (0.52-1.04); Estimated Glomerular Filt Rate 106 ml/min (>60); GFR (African American) 128 ML/MIN (>60); Globulin 2.5 g/dL (1.3-3.2); Glucose 59 mg/dl (74-100); Lipase 49 U/L (23-300); Potassium 3.9 mmoL/L (3.5-5.1); Sodium 140 mmol/L (136-145); Total Protein,Serum 7.4 g/dl (6.3-8.2)
[2025-05-05 17:45] VITALS: BP 106/53; PULSE 89; O2SAT 100
[2025-05-05 18:00] VITALS: BP 111/70; PULSE 94; O2SAT 100
[2025-05-05 18:10] LABS: RBC,Urine TNTC #/hpf (0-3); Squamous Epithelial Cell,Urine 20-50 #/hpf (0-5)
[2025-05-05 18:11] LABS: Bacteria,Urine 3+ /lpf
[2025-05-05 19:15] VITALS: BP 110/77; PULSE 77; RESP 16; TEMP 36.8; O2SAT 100
== END 2025-05-05 19:00 | disposition home or self-care (01) ==
PROVIDERS: Emergency Provider Student in an Organized Health Care Education/Training Program; PCP Family Medicine
DX: N13.0 Hydronephrosis with ureteropelvic junction obstruction (principal); R10.A3 Flank pain, bilateral; R11.2 Nausea with vomiting, unspecified; R39.15 Urgency of urination; R35.0 Frequency of micturition; R00.0 Tachycardia, unspecified; N20.0 Calculus of kidney
CPT/HCPCS: 74176; 80053; 81001; 81025; 83605; 83690; 85025; 87086; 93005; 96361; 96374; 96375; 99284; J1885; J2405; J7120

== ENCOUNTER 2025-05-11 17:13 | Outpatient (CLI) | payer OTHER, SELFPAY ==
--- OUTSIDE RECORDS SUMMARY | 2025-05-12 17:14 | XMS_ITS | Data Portability ---
Author Organization [facility] Address [address] [place] [address] Assessment No assessment recorded. Plan of Treatment Reminders Order Date Submit Date Provider Last Modified By Organization Details Last Modified Time Details Appointments None recorded. Lab PPD (purified protein derivative) , skin test [email or web address] [place] [address], [id number], 4 17:18:04 Referral None recorded. Procedures None recorded. Surgeries None recorded. Imaging None recorded. Medication Orders Aplisol 5 tub. unit/0.1 mL intradermal injection solution 2023 024 [email or web address] [facility], [address] [place] [address], [id number], 4 10:34:15 fluconazole 200 mg tablet 2022 023 [facility], [address] [place] [address], [address], 3 17:31:17 ketoconazol e 2 % topical cream 2022 023 [facility], [address] [place] [address], [address], 3 17:31:17 medroxyprog esterone 150 mg/mL intramuscul ar suspension 2022 023 [email or web address] Not available 3 17:32:16 cephalexin 500 mg capsule 2022 023 [facility], [address] [place] [address], [address], 3 17:31:17 Patient TargetsNo targets recorded. Patient InstructionsNo instructions recorded. Reason for Referral None Reported. Results Created Date Observation Date Name Description Value Unit Range Abnormal Flag Note LastModifiedBy Organization Detail LastModifiedTime 06/27/20 24 06/27/2024 PPD (shad fied prote in deriv ative ), skin test TB negati ve Not Available [address], [phone], 06/27/2024 16:34:41 Result Notes None recorded. Problems Name Problem SNOMED Code Status Onset Date Resolution Date Notes Provider Name and Address Organization Details Recorded Time Acute maxillar y sinusiti s [id number] Completed 201711/16/2017 Problem Code: J01.00; Problem Code Type: ICD-10; Not Available [facility] 22:30:31 Attentio n deficit hyperact ivity disorder 658743975 Completed 201712/10/2020 Problem Code: 314.01; Problem Code Type: ICD-9; Not Available [facility] 22:30:42 Cough 19688369 Completed 201710/12/2017 Problem Code: R05; Problem Code Type: ICD-10; Not Available [facility] 22:30:33 IgE-medi ated allergic asthma 615974546 Completed 201712/10/2020 Problem Code: 493.00; Problem Code Type: ICD-9; Not Available [facility] 22:30:44 Attentio n deficit hyperact ivity disorder , predomin antly inattent liliane type 84088869 Completed 201710/25/2017 Problem Code: F90.0; Problem Code Type: ICD-10; Not Available [facility] 22:30:31 Attentio n deficit hyperact ivity disorder 863410469 Completed 201702/11/2018 Problem Code: F90.9; Problem Code Type: ICD-10; Not Available [facility] 2 22:30:31 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 284047114 Completed 201702/11/2018 Problem Code: 314.00; Problem Code Type: ICD-9; Not Available [facility] 2 22:30:41 Abnormal uterine bleeding [id number] 100 Completed 201701/03/2018 Problem Code: N93.8; Problem Code Type: ICD-10; Not Available [facility] 2 22:30:33 Finding of frequenc y of menstrua tion 506174408 Completed 201701/03/2018 Not Available [facility] 2 22:30:33 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 71673625007 9100 Completed 201703/01/2020 Problem Code: M41.124; Problem Code Type: ICD-10; Not Available [facility] 2 22:30:39 Dysfunct ional uterine bleeding Completed 201701/03/2018 Problem Code: 626.8; Problem Code Type: ICD-9; Not Available [facility] 2 22:30:44 Idiopath ic scoliosi s AND/OR kyphosco liosis Completed 201712/10/2020 Problem Code: 737.30; Problem Code Type: ICD-9; Not Available [facility] 2 22:30:47 Edema of lower eyelid 107307477 Completed 201702/11/2018 Not Available [facility] 2 22:30:31 Edema of eyelid 01642928 Completed 201702/11/2018 Problem Code: 374.82; Problem Code Type: ICD-9; Not Available [facility] 2 22:30:43 Psychody namic relation ship finding 937615571 Completed 201702/11/2018 Problem Code: Z63.9; Problem Code Type: ICD-10; Not Available [facility] 2 22:30:38 Family problems 731854890 Completed 201702/11/2018 Problem Code: V61.9; Problem Code Type: ICD-9; Not Available [facility] 2 22:30:45 Khoi nadine 035777089 Completed 201703/01/2020 Problem Code: Z68.51; Problem Code Type: ICD-10; Not Available [facility] 2 22:30:39 Disorder of upper respirat ory system 600615918 Completed 201707/17/2018 Problem Code: J06.9; Problem Code Type: ICD-10; AILYN MYNEAR null, [employer] 3 17:07:19 Acute upper respirat ory infectio n of multiple sites Completed 201707/17/2018 Problem Code: 465.8; Problem Code Type: ICD-9; Not Available [facility] 2 22:30:43 Idiopath ic urticari a 61886458 Completed 201801/15/2023 Problem Code: L50.1; Problem Code Type: ICD-10; AILYN MYNEAR null, [employer] 3 17:07:19 Suprapub ic pain 210405729 Completed 201801/15/2023 AILYN MYNEAR null, [employer] 3 17:07:18 Cyst of ovary 66260613 Completed 201801/15/2023 Problem Code: N83.201; Problem Code Type: ICD-10; AILYN MYNEAR null, [employer] 3 17:07:19 Acute pharyngi tis 482679632 Completed 201901/15/2023 AILYN MYNEAR null, [employer] 3 17:07:19 Pyrexia of unknown origin 7938209 Completed 201901/15/2023 Problem Code: R50.9; Problem Code Type: ICD-10; AILYN MYNEAR null, [employer] 3 17:07:19 Influenz a caused by Influenz a A virus 170247697 Completed 201901/15/2023 AILYN MASTERSNIKIMerary null, [employer] 3 17:07:19 Oppositi onal defiant disorder 37087907 Completed 201912/10/2020 Problem Code: 313.81; Problem Code Type: ICD-9; AILYN MYNIKIR null, [employer] 3 17:07:19 Oppositi onal defiant disorder 73171251 Completed 201912/10/2020 Problem Code: 313.81; Problem Code Type: ICD-9; AILYN MYNEAR null, [employer] 3 17:07:19 Oppositi onal defiant disorder 43425469 Completed 201901/15/2023 Problem Code: F91.3; Problem Code Type: ICD-10; AILYN MYNIKIR null, [employer] 3 17:07:19 Recurren t major depressi ve episodes , moderate 900202594 Completed 201901/15/2023 Problem Code: 296.32; Problem Code Type: ICD-9; AILYN MYNIKIR null, [employer] 3 17:07:19 Oppositi onal defiant disorder 54911778 Completed 201912/10/2020 Problem Code: 313.81; Problem Code Type: ICD-9; AILYN MYNIKIR null, [employer] 3 17:07:19 Recurren t major depressi ve episodes , moderate 252081934 Completed 201912/10/2020 Problem Code: 296.32; Problem Code Type: ICD-9; AILYN MYNEAR null, [employer] 3 17:07:19 Oppositi onal defiant disorder 94313790 Completed 201912/10/2020 Problem Code: 313.81; Problem Code Type: ICD-9; AILYN SONAMNEAR null, [employer] 3 17:07:19 Moderate recurren t major depressi on 27901313 Completed 201901/15/2023 Problem Code: F33.1; Problem Code Type: ICD-10; AILYN MASTERSNEAR null, [employer] 3 17:07:19 Recurren t major depressi ve episodes , moderate 011381730 Completed 201912/10/2020 Problem Code: 296.32; Problem Code Type: ICD-9; AILYN SONAMNEAR null, [employer] 3 17:07:19 Oppositi onal defiant disorder 60331117 Completed 201912/10/2020 Problem Code: 313.81; Problem Code Type: ICD-9; AILYN MASTERSNEAR null, [employer] 3 17:07:19 Tinea pedis 0718040 Completed 201905/16/2020 Problem Code: B35.3; Problem Code Type: ICD-10; Not Available [facility] 2 22:30:31 Well child 485550456 Active 2019 Not Available [facility] 2 22:30:35 Syphilis test finding 245703607 Active 2019 Problem Code: Z11.3; Problem Code Type: ICD-10; Not Available [facility] 2 22:30:35 Uses depot contrace ption 335093467 Completed 201912/10/2020 Not Available [facility] 2 22:30:37 Normal body mass index 12810298 Completed 201912/10/2020 Problem Code: Z68.52; Problem Code Type: ICD-10; Not Available [facility] 2 22:30:39 Oppositi onal defiant disorder 84521964 Completed 201912/10/2020 Problem Code: 313.81; Problem Code Type: ICD-9; AILYN MASTERSNEAR null, [employer] 3 17:07:19 Recurren t major depressi ve episodes , moderate 389288372 Completed 201912/10/2020 Problem Code: 296.32; Problem Code Type: ICD-9; AILYN CHEUNG null, [employer] 3 17:07:19 Abdomina l pain 32673040 Completed 201908/02/2020 Problem Code: R10.9; Problem Code Type: ICD-10; AILYN CHEUNG null, [employer] 3 17:07:19 Abdomina l pain 59632139 Completed 201901/15/2023 Problem Code: R10.9; Problem Code Type: ICD-10; AILYN CHEUNG null, [employer] 3 17:07:19 Medical examinat ion for suspecte d conditio n Completed 201901/15/2023 AILYN CHEUNG null, [employer] 3 17:07:19 Uses depot contrace ption 599670259 Completed 202012/10/2020 Not Available [facility] 2 22:30:36 Dysuria 15859940 Completed 202001/15/2023 Problem Code: R30.0; Problem Code Type: ICD-10; AILYN CHEUNG null, [employer] 3 17:07:19 Uses depot contrace ption 352342097 Active 2020 Not Available [facility] 2 22:30:37 Acute sinusiti s 78510628 Completed 202012/10/2020 Problem Code: J01.90; Problem Code Type: ICD-10; AILYN CHEUNG null, [employer] 3 17:07:18 Pelvic and perineal pain 803372641 Completed 202001/15/2023 Problem Code: R10.2; Problem Code Type: ICD-10; AILYN TRIANAR null, [employer] 3 17:07:19 Dizzines s and giddines s 320326157 Completed 202012/19/2021 Problem Code: R42; Problem Code Type: ICD-10; Not Available [facility] 22:30:34 Contrace ption care manageme nt Completed 202012/22/2021 Problem Code: Z30.9; Problem Code Type: ICD-10; Not Available [facility] 22:30:37 Urinary tract infectio us disease 96363011 Completed 202012/19/2021 Problem Code: N39.0; Problem Code Type: ICD-10; Not Available [facility] 22:30:32 Disorder of upper respirat ory system 712429743 Completed 202012/19/2021 Problem Code: J06.9; Problem Code Type: ICD-10; AILYN MYNEAR null, [employer] 3 17:07:19 Acute pyelonep hritis 09827090 Completed 202001/15/2023 Problem Code: N10; Problem Code Type: ICD-10; AILYN MYNEAR null, [employer] 3 17:07:19 Suprapub ic pain 404409170 Completed 202112/19/2021 AILYN MYNEAR null, [employer] 3 17:07:18 Medical examinat ion for suspecte d conditio n Completed 202112/19/2021 Problem Code: Z03.89; Problem Code Type: ICD-10; AILYN MYNEAR null, [employer] 3 17:07:19 Acute sinusiti s 87881572 Completed 202101/15/2023 Problem Code: J01.90; Problem Code Type: ICD-10; AILYN MYNEAR null, [employer] 3 17:07:18 Cough 99930905 Completed 202112/22/2021 Problem Code: R05; Problem Code Type: ICD-10; Not Available [facility] 2 22:30:33 Nausea 371172574 Completed 202101/15/2023 Problem Code: R11.0; Problem Code Type: ICD-10; AILYN CHEUNG null, [employer] 3 17:07:19 Disorder of upper respirat ory system 475767794 Completed 202101/15/2023 Problem Code: J06.9; Problem Code Type: ICD-10; AILYN MASTERSNEAR null, [employer] 3 17:07:19 Finding of viabilit y of pregnanc y 716727917 Completed 202101/15/2023 AILYN TRIANAR null, [employer] 3 17:07:19 Finding of body mass index 479070583 Active 2021 Problem Code: Z68.1; Problem Code Type: ICD-10; Not Available [facility] 2 22:30:39 Amenorrh ea 05478142 Completed 202101/15/2023 Problem Code: N91.2; Problem Code Type: ICD-10; AILYN TRIANAR null, [employer] 3 17:07:18 Problem Notes None recorded. Medical Equipment None Reported. Allergies No known drug allergies Medications Name Sig Start Date Stop Date Status Note LastModified by Organization Details LastModified Time amoxicillin 500 mg capsule take 1 capsule (500 mg) by oral route every 12 hours for 10 days 01/15 completed Not Available Not Available Not Available Vitamin B-6 25 mg tablet 01/15 completed Not Available Not Available Not Available azithromyci n 250 mg tablet take 2 tablets (500 mg) by oral route once daily for 1 day then 1 tablet (250 mg) by oral route once daily for 4 days 01/18 completed Not Available Not Available Not Available hydrocodone 5 mg-acetamin ophen 325 mg tablet TAKE 1 TABLET BY MOUTH EVERY 4 HOURS NEEDED FOR SEVERE PAIN 01/15 completed Not Available Not Available Not Available fluconazole 200 mg tablet Take 1 tablet every day by oral route for 5 days. active Not Available Not Available No t Available Aplisol 5 tub. unit/0.1 mL intradermal injection solution Inject 0.1 mL by intraderm al route. 2023 active Not Available Not Available Not Avai lable prednisone 20 mg tablet one tablet daily for 5 days 11/06 completed Not Available Not Available Not Available loperamide 2 mg tablet TAKE 1 TABLET BY MOUTH ONE TIME NEEDED AFTER 1ST LOOSE STOOL AND 1 TABLET AFTER EACH SUBSEQUEN T BOWEL MOVEMENT; DO NOT EXCEED 8 TABLETS PER DAY active Not Available Not Available No t Available Zyrtec 10 mg tablet Take 1 tablet(s) by mouth at bedtime. 08/12 completed Not Available Not Available Not Available ciprofloxac in 250 mg tablet TAKE 2 TABLETS BY MOUTH EVERY 12 HOURS active Not Available Not Available No t Available sulfamethox azole 800 mg-trimetho prim 160 mg tablet take 1 tablet by oral route every 12 hours for 5 days 05/09 completed Not Available Not Available Not Available omeprazole 40 mg capsule,del ayed release active Not Available Not Available Not Available triamcinolo ne acetonide 0.1 % topical cream Apply thinly to affected areas Bid prn itching for two weeks. 11/06 completed Not Available Not Available Not Available cephalexin 500 mg capsule Take 1 capsule every 6 hours by oral route for 7 days. active Not Available Not Available No t Available oseltamivir 75 mg capsule take 1 capsule (75 mg) by oral route 2 times per day 03/01 completed Not Available Not Available Not Available neomycin-po lymyxin-dex ameth 3.5 mg/mL-10,00 0 unit/mL-0.1 % eye drops Instill 2 drop(s) to affected eye(s) q 3 to 4 hr 02/11 completed Not Available Not Available Not Available Cipro 500 mg tablet take 1 tablet (500 mg) by oral route 2 times per day 12/19 completed Not Available Not Available Not Available promethazin e 25 mg tablet 06/19 /2023 completed Not Available Not Available Not Available docusate sodium 100 mg capsule TAKE 1 CAPSULE BY MOUTH TWICE DAILY WITH AT LEAST 8 OZ OF WATER 01/15 completed Not Available Not Available Not Available norgestimat e-ethinyl estradiol 0.18mg/0.21 5mg/0.25mg- 0.035mg(28) tablet take 1 tablet by oral route once daily 12/22 completed Not Available Not Available Not Available montelukast 10 mg tablet Take 1 tablet(s) by mouth each evening 08/12 completed Not Available Not Available Not Available hydroxyzine HCl 25 mg tablet active Not Available Not Available Not Available ibuprofen 600 mg tablet TAKE 1 TABLET BY MOUTH EVERY 6 HOURS NEEDED FOR PAIN 01/15 completed Not Available Not Available Not Available ketoconazol e 2 % topical cream APPLY TO THE AFFECTED AREA(S) BY TOPICAL ROUTE ONCE DAILY active Not Available Not Available No t Available bromphenira mine-pseudo ephedrine-D M 2 mg-30 mg-10 mg/5 mL oral syrup take 10 millilite rs by oral route every 4 -6 hours PRN cough 01/18 completed Not Available Not Available Not Available ondansetron 4 mg disintegrat ing tablet place 1 tablet (4 mg) and place on top of the tongue where it will dissolve, then swallow by transling ual route q 4-6 hours PRN N/V active Not Available Not Available No t Available medroxyprog esterone 150 mg/mL intramuscul ar suspension inject intramusc ular route every 3 months 2022 active Not Available Not Available Not Avai lable dicyclomine 10 mg capsule TAKE 1 CAPSULE BY MOUTH EVERY 6 HOURS NEEDED active Not Available Not Available No t Available Ventolin HFA 90 mcg/actuati on aerosol inhaler 1-2 puffs every 4-6 hours as needed for cough or wheeze 01/03 completed Not Available Not Available Not Available Vitamin 27 mg iron-0.8 mg tablet 01/15 completed Not Available Not Available Not Available medroxyprog esterone 150 mg/mL intramuscul ar syringe active Not Available Not Available N ot Available nitrofurant oin monohydrate /macrocryst als 100 mg capsule 01/15 completed Not Available Not Available Not Available Antifungal (clotrimazo le) 1 % topical cream apply to the affected and surroundi ng areas of skin on feet by topical route 2 times per day in the morning and evening 05/12 completed Not Available Not Available Not Available Wellbutrin SR 08/12 completed Not Available Not Available Not Available FeroSul 325 mg (65 mg iron) tablet TAKE 1 TABLET BY MOUTH ONCE DAILY 01/15 completed Not Available Not Available Not Available Vitals Date Recorded Body height Body mass index (BMI) [Percentile] Per age and sex Body mass index (BMI) Body weight Body temperature Heart rate Oxygen saturation Oxygen saturation in Arterial blood by Pulse oximetry Systolic And Diastolic Provider Name and Address Organization Details Last Updated DateTime 3 139.7 cm 52 % 21.8 kg/m2 91906.2 5 g 98 [degF] 89 /min 99 % 99 % 99/56 mm[Hg] AILYN Proven [employer] 3 17:10:21 Social History Question Answer Notes LastModified by Organizat ion Details LastModified Time Tobacco Smoking Status Never Smoker SocialHis toryQuest ion: 'Tobacco/ Alcohol/S upplement s'; SocialHis toryRespo nse: 'Never Smoker'; Not Available [facility] 04/04/2022 22:59:52 Do You Have An Advance Directive? No Information not available 01/15/2023 Is Your Home Air Conditioned? Yes Information not available 01/15/2023 In The 14 Days Before Symptom Onset, Have You Had Close Contact With A Laboratory-confir med COVID-19 While That Case Was Ill? No Information not available 01/15/2023 In The 14 Days Before Symptom Onset, Have You Had Close Contact With A Person Who Is Under Investigation For COVID-19 While That Person Was Ill? No Information not available 01/15/2023 Have You Been To An Area Known To Be High Risk For COVID-19? No Information not available 01/15/2023 What Type Of Diet Are You Following? REGULAR Information not available 01/15/2023 Are There Any Guns Present In Your Home? No Information not available 01/15/2023 Do You Have A Medical Power Of Supervisor Varnish? No Information not available 01/15/2023 What Was The Date Of Your Most Recent Tobacco Screening? 01/15/2023 Information not available 01/15/2023 Do You Use Your Seat Belt Or Car Seat Routinely? Yes Information not available 01/15/2023 Do You Have Smoke And Carbon Monoxide Detectors In Your Home? Yes Information not available 01/15/2023 Are You Passively Exposed To Smoke? No Information no t available 01/15/2023 Are There Any Smokers In Your House? No Information not available 01/15/2023 Do You Use Sunscreen Routinely? No Information not available 01/15/2023 Have You Recently Traveled Abroad? No Information not available 01/15/2023 Do You Have Any Dietary Restrictions? No Information not available 01/15/2023 Sex: Female Functional Status Question Answer Note LastModified by Organizat ion Details LastModified Time Do you use any illicit or recreational drugs? No Information not available 01/15/2023 What is your level of alcohol consumption? None Information not available 01/15/2023 Are you currently employed? Yes Information not available 01/15/2023 Do you have transportation difficulties? No Information not available 01/15/2023 Are you able to care for yourself independently? Yes Information not available 01/15/2023 Mental Status None recorded. Family History Relationship Description Onset Age of this Age Resolved Age Notes LastModified by Organization Details LastModified Time Unspecified Relation Family history of drug abuse Relati ve: ''; [email or web address] Not available 04/04/2022 22:59:26 Notes:*Procedure Description : Documented family medical history in mother*Relative: Mother *Procedure Description: Documented family medical history in father*Relative: Father Medical History Condition Response Allergies (Food, seasonal, environmental ) Y Asthma Y Gynecological HistoryNo gynecological history recorded. Obstetrics History GPAL:G 0 P 0 0 0 0 Immunizations Vaccine Type Date Status Note Provider Nam e and Address Organization Details Recorded Time HPV, quadrivalent 5 completed Not Available [employer] 04/04/2022 23:02:15 HPV9 8 completed Not Available [facility] 04/04/2022 23:02:15 DTaP 8 completed Not Available [facility] 04/04/2022 23:02:16 DTaP 5 completed Not Available [facility] 04/04/2022 23:02:16 DTaP 4 completed Not Available [facility] 04/04/2022 23:02:16 DTaP 4 completed Not Available [facility] 04/04/2022 23:02:17 MMR 8 completed Not Available [facility] 04/04/2022 23:02:17 IPV 5 completed Not Available [facility] 04/04/2022 23:02:17 IPV 8 completed Not Available [facility] 04/04/2022 23:02:17 Hep B, adolescent or pediatric 4 completed Not Available [facility] 04/04/2022 23:02:18 varicella 5 completed Not Available [facility] 04/04/2022 23:02:18 Pneumococcal conjugate PCV 13 4 completed Not Available [facility] 04/04/2022 23:02:18 Pneumococcal conjugate PCV 13 4 completed Not Available [facility] 04/04/2022 23:02:18 Hep A, ped/adol, 2 dose 8 completed Not Available [facility] 04/04/2022 23:02:18 Hib (HbOC) 4 completed Not Available [facility] 04/04/2022 23:02:18 Hib (HbOC) 4 completed Not Available [facility] 04/04/2022 23:02:18 Tdap 5 completed Not Available [facility] 04/04/2022 23:02:19 Hep B, adult 4 completed Not Available [facility] 04/04/2022 23:02:19 Hep B, adult 4 completed Not Available [facility] 04/04/2022 23:02:19 meningococcal MCV4P 5 completed Not Available 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 She was instructed to have the artificial overlays and all yoruba removed from her fingernail s and to leave them clean and dry. She was instructed to avoid keeping her hands in wet damp environmen ts. She is to return to clinic if this fails to improve over the next week. She was instructed that she must leave all nail overlays and polishes off of her fingers for at least the next 2 months. She was instructed not to bite and chew her fingernail s and cuticles. She was instructed to throw away all of her manicure tools at home due to likely contaminat ion. Cellulitis of finger of left hand [id number] 6699706 L03.012 Surveillan ce of depot contraception done [id number] 9104 Z30.42 Effectiven ess, correct use, advantages /disadvant ages, common side effects, serious complicati ons, contra-ind ications/p recautions and return to fertility were reviewed for the following: Combined oral contracept liliane (pills/pat ch/ring), Progestero ne-only pills, DepoProver a injection, Nexplanon implant,Sk yla IUD, Mirena IUD, Paragard IUD, Condoms, Diaphragm, Spermacide s, Permanent sterilizat ion (tubal ligation & Essure), Vasectomy for partner. [id number] Tigist MAC Azevedo [address] [phone] 0 06/25/2024 16:50:25 06/27/2024 11:24:34 Tuberculosis screening [id number] Z11.1 [id number] Deanna Cox NP [facility] [id number] 06/27/2024 16:28:46 06/27/2024 16:55:31 Tuberculosis screening [id number] Z11.1 Health Concerns Section Related Observation LastModified by Organization Detai ls LastModified Time None Recorded Concern Status LastModified by Organization Details LastModified Time None Recorded Advance Directives Directive N: Payers Insurance Date Sequence Insurance Name Policy Number Policy Morales Covered Member ID Morales Member ID Guarantor Name 01/15/2023 1 *SELF PAY* Ca erin Dutton 10/23/2024 1 UNSPECIFIED REMIT PAYOR Estrella Dutton 06/30/2024 1 [employer] [facility] (MEDICAID HMO) Estrella Dutton [id number] Estrella Dutton Notes Date Note Type Note Provider Name and Address Organization Details Recorded Time 01/15/2023 text/html Skin LesionRepor marisa by PatientHPIFor quality, patient reportspainful,tender ,sore, anddrainage. For severity, patient reportsmoderate. For duration, patient reportsstarted 1 month(s) ago. For onset/timing, patient reportsgradual,consta nt,becoming more symptomatic, andwon't heal. For aggravating factors, patient reportsdampness. For associated symptoms, patient reportsno fever,no cold symptoms,no nausea,no vomiting,no diarrhea, andno urinary symptoms(erythema and drainage and destruction of nails both hands). For location, (all fingernails on both hands). For context, (developed with use of artificial fingernail overlays). OCP CheckReported by PatientHPIFor context, patient reportshormonal contraception. For associated symptoms, patient reportsregular menses,no btb menses, andno side effects.ROS as noted in the HPI Tigist Azevedo APRN [address] [facility], [place], [address], [facility] [employer] 01/15/2023 17:47:24 OBGyn Episode No OBEpisode recorded.
== END 2025-05-11 23:59 | disposition home or self-care (01) ==
LOC: LAB.DROPOF 05-12 17:13
PROVIDERS: PCP Nurse Practitioner Family; Visit Provider Nurse Practitioner Family
DX: R39.9 Unspecified symptoms and signs involving the genitourinary system (principal)
CPT/HCPCS: 87086